=== PATIENT | female | born 1990 | race Caucasian/White ===

== ENCOUNTER 2017-06-21 13:34 | Emergency (ER) | payer BC, SELFPAY ==
[2017-06-21 13:35] VITALS: BP 145/88; PULSE 98; RESP 16; TEMP 36.6; O2SAT 100; BMI 48.2
[2017-06-21 14:11] VITALS: O2SAT 100
[2017-06-21 14:17] VITALS: BP 110/77; BP 128/98; BP 129/104; PULSE 89; PULSE 91; PULSE 95
--- NOTE | 2017-06-21 14:37 | ED.VISSUMM ---
- ER Visit Summary Date of Service: 06/21/17 Chief Complaint: Dizziness History of Present Illness: The patient is a 27 F who presents with dizziness. She has felt dizzy over the past 2 days. She describes this as feeling lightheaded and off-balance. No syncope. She has had a recent URI-like illness with congestion rhinorrhea sore throat and cough. She also complains of fatigue. She is tolerating p.o. chest pain or shortness of breath. Thumbs are positional and worsened with certain movements or by laying completely flat. Physical Examination: Afebrile vitals are unremarkable Moist mucous membranes TMs are clear Neck supple Heart regular rate and rhythm Lungs are clear Abdomen soft Test Results: Orthostatic vital signs negative Emergency Department Course and Treatment: History and examination are suggestive of peripheral vertigo. She was given a prescription for Antivert. She understands to return for new or worsening symptoms and was instructed on specific signs and symptoms to monitor for. She was discharged. Treatment Plan: [] Disposition: Discharge Impression: Vertigo This note was generated with [employer] dictation software. It may contain incorrect words, spelling, and punctuation that were not noted in review of the chart prior to signing ED Disposition - Plan for ED Patient: Chief Complaint: Dizziness Referrals: William Mackey DO [Primary Care Provider] -
--- NOTE | 2017-06-21 14:39 | ED.DEP ---
ED Disposition - Plan for ED Patient: Chief Complaint: Dizziness Instructions: ED Vertigo Unspecified Prescriptions: Meclizine HCl [Antivert] 25 mg PO 4X/DAY PRN PRN #20 tab PRN Reason: Dizziness Referrals: William Mackey DO [Primary Care Provider] -
[2017-06-21 14:54] VITALS: BP 129/58; PULSE 74; RESP 16; O2SAT 98
== END 2017-06-21 14:55 | disposition home or self-care (01) ==
LOC: ED 14:42
PROVIDERS: Emergency Provider Emergency Medicine; Family Provider Student in an Organized Health Care Education/Training Program; PCP Student in an Organized Health Care Education/Training Program
DX: R42 Dizziness and giddiness (principal); J34.89 Other specified disorders of nose and nasal sinuses; J02.9 Acute pharyngitis, unspecified; R09.81 Nasal congestion; R05 Cough; R53.83 Other fatigue; Z90.49 Acquired absence of other specified parts of digestive tract
CPT/HCPCS: 99283

== ENCOUNTER → 2017-10-22 07:14 | Outpatient (CLI) | payer BC, SELFPAY ==
--- NOTE | 2017-10-22 07:45 | MRI_ITS ---
STUDY: MRI RIGHT MIDFOOT REASON FOR EXAM: Female, 27 years old. Pain. Plantar fascial fibromatosis TECHNIQUE: Standardized fat and water weighted pulse sequences were obtained in all 3 orthogonal planes. COMPARISON: None. FINDINGS: There is mild degenerative arthrosis of the talonavicular articulation. Normal calcaneocuboid articulation. Normal navicular-cuneiform articulations. Normal intercuneiform articulations. There is plantar heel spur. There is thickening and edema of the proximal plantar fascia, series 5 image 01/25. Normal first tarsometatarsal articulation. Normal Lisfranc ligament. Normal second and third tarsometatarsal articulations. Normal cuboid fourth and cuboid fifth tarsometatarsal articulation. Normal first through fifth metatarsi. There is mild marrow edema and possible stress fracture of the base and proximal shaft of the fourth metatarsal, series 5 images / and and series 6 image There is tenosynovitis of the tibialis anterior tendon, with an intrinsically normal tendon. There is 1.1 cm ganglion adjacent to the insertion. Normal extensor hallucis longus tendon. Normal extensor digitorum longus tendons. Normal peroneus longus tendon and distal insertion. Normal peroneus brevis tendon and distal insertion. Normal intrinsic muscles of the mid and forefoot region. Normal extensor digitorum brevis muscle. Normal subcutis adipose space. MRI/Lower Ext Joint Only (Routine) IMPRESSION: Plantar fasciitis. Small heel spur. Stress injury or stress fracture of the fourth metatarsal. Tenosynovitis of the tibialis anterior with adjacent ganglion. Electronically Signed: Tyler Magana MD at 9:00 EDT , Service support ,
--- NOTE | 2017-10-22 08:30 | MRI_ITS ---
STUDY: MRI LEFT MIDFOOT REASON FOR EXAM: Female, 27 years old. Pain. Left fascial fibromatosis. TECHNIQUE: Standardized fat and water weighted pulse sequences were obtained in all 3 orthogonal planes. COMPARISON: None. FINDINGS: Joint effusion of the talonavicular articulation. Normal calcaneocuboid articulation. Normal navicular-cuneiform articulations. Normal intercuneiform articulations. There is small plantar heel spur with marrow edema of the inferior calcaneus. There is thickening and edema of the proximal plantar fascia, series 5 image 10/ Normal first tarsometatarsal articulation. Normal Lisfranc ligament. Normal second and third tarsometatarsal articulations. Normal cuboid fourth and cuboid fifth tarsometatarsal articulation. Normal first through fifth metatarsi. There is mild marrow edema in the proximal shaft of the fourth metatarsal, series 5 image 18/26. Normal tibialis anterior tendon. Normal extensor hallucis longus tendon. Normal extensor digitorum longus tendons. Normal peroneus longus tendon and distal insertion. Normal peroneus brevis tendon and distal insertion. Normal intrinsic muscles of the mid and forefoot region. Normal extensor digitorum brevis muscle. Normal subcutis adipose space. MRI/Lower Ext Joint Only (Routine) IMPRESSION: Plantar fasciitis with heel spur and reactive edema of the calcaneus. Stress injury of the fourth metatarsal. Electronically Signed: Tyler Magana MD at 11:30 EDT , Service support ,
== END ==
PROVIDERS: Family Provider Student in an Organized Health Care Education/Training Program; PCP Student in an Organized Health Care Education/Training Program; Visit Provider Podiatrist
DX: M72.2 Plantar fascial fibromatosis (principal); M79.671 Pain in right foot; M79.672 Pain in left foot; M21.6X9 Other acquired deformities of unspecified foot
CPT/HCPCS: 73721